=== PATIENT | male | born 1965 | race Caucasian/White ===

== ENCOUNTER → 2018-09-08 | Day surgery (SDC) | payer OTHER ==
--- NOTE | 2018-09-06 14:01 | Diagnostic Imaging Report ---
EXAM: XR CHEST 2 VIEWS DATE: 09/06/2018 1:31 PM INDICATION: COPD COMPARISON: None FINDINGS: Lines and Tubes: None Heart and Mediastinum: No acute cardiomediastinal findings. Lungs and Pleura: No significant pleural effusion, pneumothorax, or focal consolidation. Bones and Soft Tissues: No acute findings. IMPRESSION: 1. No acute cardiopulmonary findings. Signed by: Dr. Benson Baldwin MD on 09/06/2018 1:58 PM
[2018-09-06 14:15] LABS: BASOPHILS # (AUTO) 0.1 (0.0-0.1); BASOPHILS % 1.1 % (0.0-1.0); EOSINOPHILS # (AUTO) 0.1 (0.0-0.4); EOSINOPHILS % 2.3 % (0.0-6.0); HEMATOCRIT 42.2 % (38.2-49.6); HEMOGLOBIN 14.3 g/dL (14.0-18.0); LYMPHOCYTES % 37.9 % (18.0-39.1); MEAN CORPUSCULAR HEMOGLOBIN 28.5 pg (28-32); MEAN CORPUSCULAR HGB CONC 33.9 g/dL (31-35); MEAN CORPUSCULAR VOLUME 84.1 fL (81-99); MONOCYTES # (AUTO) 0.5 (0.2-0.8); MONOCYTES % 9.9 % (4.4-11.3); NEUTROPHILS # (AUTO) 2.5 (2.1-6.9); NEUTROPHILS % 48.6 % (38.7-80.0); PLATELET COUNT 175 x10e3/uL (140-360); RED BLOOD COUNT 5.02 x10e6/uL (4.3-5.7); RED CELL DISTRIBUTION WIDTH 13.1 % (11.7-14.4)
[~2018-09-08] MED LIST: CEFTRIAXONE SOD 1 GM VIAL ONE; DEXAMETHASONE SOD PHOS INJ 4 MG/ML VIAL ONE; FENTANYL CITRATE/PF 100MCG/2 ML INJ ONE; FLOMAX0.4 MG PO; IOPAMIDOL 610MG/1ML 300 MG/ML VIAL IV ONE; LIDOCAINE HCL 2% LOCAL INJ 5 ML SDV VIAL INJ ONE; LOSARTAN-HCTZ1 EAC1 PO; MIDAZOLAM HCL 2 MG/2 ML VIAL ONE; ONDANSETRON HCL INJ 2 MG/ML VIAL ONE; PAROXETINE HCL20 MG PO; PROPOFOL IV EMULSION 10 MG/ML 20 ML VIAL ONE; SEVOFLURANE INHAL SOLN 250 ML PEN BTL ONE; SPIRIVA18 MCG INH
--- OUTSIDE RECORDS SUMMARY | 2018-09-08 11:54 | XMS REPORT ---
Author Author [facility] Address Unknown Phone Unavailable Care Team Providers Care Manager Marketing Communications Name Role Phone ABHINAV NAM Unavailable Unavailable Problems This patient has no known problems. Allergies, Adverse Reactions, Alerts This patient has no known allergies or adverse reactions. Medications This patient has no known medications. Results Test Description Test Time Test Comments Text Results Atomic Results Result Comments CHEST 2 VIEWS 2018-09-06 13:58:00 [place] [id number] Patient Name: BRUCE CEDEÑO MR #: [id number] : 1965 Age/Sex: 53/M Req #: [id number] [facility] Physician: Ordered by: ABHINAV NAM MD Report #: [id number] Location: OR Room/Bed: Procedure: [id number] DX/CHEST 2 VIEWS Exam Date: Exam Time: REPORT STATUS: Signed EXAM: XR CHEST 2 VIEWS DATE: 09/06/2018 1:31 PM INDICATION: COPD COMPARISON: None FINDINGS: Lines and Tubes: None Heart and Mediastinum: No acute cardiomediastinal findings. Lungs and Pleura: No significant pleural effusion, pneumothorax, or focal consolidation. Bones and Soft Tissues: No acute findings. IMPRESSION: 1. No acute cardiopulmonary findings. Signed by: Dr. Benson Alvares MD on 09/06/2018 1:58 PM Dictated By: BENSON ALVARES MD 135 Transcribed By: ROBERTO on 09/06/18 135 COPY TO: ABHINAV NAM MD
--- OUTSIDE RECORDS SUMMARY | 2018-09-08 11:54 | XMS REPORT | Clinical Summary ---
Author Author [facility] Address Unknown Phone Unavailable Care Team Providers Care Electronic Intelligence Officer Name Role Phone Asked, No Pcp PCP Unavailable Allergies No Known Allergies Medications End Date Status Medication Sig Dispensed Refills Start Date Active tamsulosin (FLOMAX) 0.4 Take 1 30 capsule 201 mg capsule,extended capsule (0.4 8 release 24hr mg total) by mouth daily. Active Problems No known active problems Encounters Care Team Description Date Type Specialty Will Galicia MD 04/08/2018 Telephone Urology Yoko Cota MA 04/05/2018 Telephone Urology Will Galicia MD BPH with obstruction/lower urinary tract symptoms (Primary Dx); Hematospermia 04/02/2018 Office Visit Urology after 09/07/2017 Social History Date Tobacco Use Types Packs/Day Years Used Never Smoker Smokeless Tobacco: Never Used Alcohol Use Drinks/Week oz/Week Comments Yes Sex Assigned at Date Recorded Not on file Industry Job Start Date Occupation Not on file Not on file Not on file Travel End Travel History Travel Start No recent travel history available. Last Filed Vital Signs Time Taken Vital Sign Reading - Blood Pressure - - Pulse - - Temperature - - Respiratory Rate - - Oxygen Saturation - - Inhaled Oxygen - Concentration 04/02/2018 8:39 AM CDT Weight 93.4 kg (206 lb) 04/02/2018 8:39 AM CDT Height 170.2 cm (5' 7") 04/02/2018 8:39 AM CDT Body Mass Index 32.26 Plan of Treatment Health Maintenance Due Date Last Done Comments MMR VACCINES (1 of - 02/14/1964 Standard series) VARICELLA VACCINES (1 of 02/14/1976 2 - 2-dose adolescent series) COLON CANCER SCREENING 2013 SHINGRIX VACCINE (1 of 2) 2013 INFLUENZA VACCINE 05/26/2018 HEPATITIS B VACCINES Aged Out No longer eligible based on patient's age to complete this topic IPV VACCINES Aged Out No longer eligible based on patient's age to complete this topic MENINGOCOCCAL VACCINE Aged Out No longer eligible based on patient's age to complete this topic Procedures Comments Procedure Name Priority Date/Time Associated Diagnosis PROSTATE SPECIFIC ANTIGEN Routine 04/02/2018 BPH with 10:28 AM CDT obstruction/lower urinary tract symptoms after 09/07/2017 Results * Prostate specific antigen (04/02/2018 10:28 AM CDT) PSA 1.5 0.0 - 4.0 ng/mL [facility] Comment: Ann ECLIA methodology. According to the [place] [employer], Serum PSA should decrease and remain at undetectable levels after radical prostatectomy. The AUA defines biochemical recurrence as an initial PSA value 0.2 ng/mL or greater followed by a subsequent confirmatory PSA value 0.2 ng/mL or greater. Values obtained with different assay methods or kits cannot be used interchangeably. Results cannot be interpreted as absolute evidence of the presence or absence of malignant disease. Specimen Blood Narrative Performed At Performed at: [facility] [place] [facility] [address], [id number] Hospitality Specialist: Bob Bryson MD, Phone:[phone] Performing Organization Address City/State/Zipcode Phone Number [facility] after 09/07/2017 Insurance Payer Benefit Subscriber ID Type Phone Address Plan / Group [facility] UMR xxxxxxxx PPO [facility] Advance Directives Patient has advance care planning documents on file. For more information, olman e contact: Richar Lund [address] [place] [address]
[2018-09-08 14:10] VITALS: BP 131/94
--- NOTE | 2018-09-08 14:41 | Operative Report ---
DATE OF PROCEDURE: September 08, 2018 PREOPERATIVE DIAGNOSIS: Hematuria. POSTOPERATIVE DIAGNOSES 1. Hematuria. 2. BPH. 3. Urethral stricture disease. PROCEDURES 1. Cystourethroscopy with calibration and dilation of the urethral stricture (entirely separate procedure for the diagnosis of urethral stricture disease, multifocal). 2. Cystourethroscopy with left ureteral catheterization and left retrograde pyelogram (separate procedure for diagnosis of hematuria). 3. Cystourethroscopy with right ureteral catheterization and right retrograde pyelogram (separate procedure for diagnosis of hematuria). 4. Supervision of fluoroscopy. 5. Interpretation of retrograde pyelography. ANESTHESIA: General. ESTIMATED BLOOD LOSS: Minimal. COMPLICATIONS: None. INDICATIONS: Mr. Shahid is a 53-year-old male with a history of hematuria. He and I had a long discussion regarding the alternatives, risks and benefits, including doing nothing, cystourethroscopy, IVP, retrograde pyelogram or ultrasound. Due to the nephrotoxic risk of dye, he elected to proceed with retrograde pyelograms. He voiced an understanding of the options, the alternatives, and the risks and benefits and elected to proceed. PROCEDURE IN DETAIL: After informed consent was obtained, the patient was taken to the operating suite. He was placed supine on the operating table. He underwent general anesthesia by the anesthesia service. He was placed in the dorsal lithotomy position. He was sterilely prepped and draped for cystoscopy. An attempt was made to insert a 22.5-Stateless cystoscope per urethra. It was calibrated to 16 Stateless and dilated to 21 Stateless, and the cystoscope was inserted. There were multifocal, wide-caliber urethral strictures in the fossa, the membranous urethra and the bulbar urethra. There was trilobar prostatic hypertrophy. Panendoscopy of the bladder revealed moderate degree of trabeculation. There were no tumors and no stones. With a moderate degree of difficulty, bilateral retrograde pyelograms were performed revealing delicate ureters and delicate pelvicaliceal systems. No evidence of filling defects and no evidence of hydronephrosis. Impression was normal bilateral retrograde pyelograms. The bladder was drained. The patient was awakened from anesthesia and transported to the recovery room in excellent condition. SUPERVISION OF FLUOROSCOPY AND INTERPRETATION OF RETROGRADE URETEROPYELOGRAPHY: I was present throughout the entire procedure, and I supervised the use of fluoroscopy. There was no radiologist present at any time during the procedure. Attention was turned toward the left and right ureteral orifices, which were catheterized with an 8-Stateless, cone-tip catheter in a retrograde fashion. Contrast was injected revealing delicate ureters and delicate pelvicaliceal systems. No evidence of filling defects and no evidence of hydronephrosis. IMPRESSION: No retrograde pyelograms. Job#: [id number] cc:OMID GALLEGO MD
== END | disposition home or self-care (01) ==
LOC: OR 11:51
PROVIDERS: ATTEND Urology
DX: N35.919 Unspecified urethral stricture, male, unspecified site (principal); R31.9 Hematuria, unspecified; N40.0 Benign prostatic hyperplasia without lower urinary tract symptoms; N43.40 Spermatocele of epididymis, unspecified; Z01.810 Encounter for preprocedural cardiovascular examination; Z01.812 Encounter for preprocedural laboratory examination; Z01.811 Encounter for preprocedural respiratory examination
CPT/HCPCS: 36415; 52281; 71046; 74420; 85025; 93005; C1758; J0696; J1100; J2001; J2250; J2405; J2704; Q9967

== ENCOUNTER → 2019-08-12 | Day surgery (SDC) | payer OTHER ==
[2019-08-11 10:40] LABS: BASOPHILS # (AUTO) 0.1 (0.0-0.1); EOSINOPHILS # (AUTO) 0.1 (0.0-0.4); EOSINOPHILS % 1.8 % (0.0-6.0); HEMATOCRIT 42.8 % (38.2-49.6); HEMOGLOBIN 14.5 g/dL (14.0-18.0); LYMPHOCYTES # (AUTO) 1.4 (1.0-3.2); LYMPHOCYTES % 28.7 % (18.0-39.1); MEAN CORPUSCULAR HEMOGLOBIN 28.8 pg (28-32); MEAN CORPUSCULAR HGB CONC 33.9 g/dL (31-35); MEAN CORPUSCULAR VOLUME 85.1 fL (81-99); MONOCYTES # (AUTO) 0.4 (0.2-0.8); MONOCYTES % 8.6 % (4.4-11.3); NEUTROPHILS % 59.7 % (38.7-80.0); PLATELET COUNT 178 x10e3/uL (140-360); RED BLOOD COUNT 5.03 x10e6/uL (4.3-5.7); RED CELL DISTRIBUTION WIDTH 12.8 % (11.7-14.4)
[2019-08-11 10:58] LABS: ALANINE AMINOTRANSFERASE 31 IU/L (0-55); ALBUMIN/GLOBULIN RATIO 1.3 (0.8-2.0); ALKALINE PHOSPHATASE 68 IU/L (40-150); ANION GAP 11.2 mmol/L (8-16); BLOOD UREA NITROGEN 18 mg/dL (7-26); BUN/CREATININE RATIO 18 (6-25); CALCIUM 10.2 mg/dL (8.4-10.2); CARBON DIOXIDE 30 mmol/L (22-29); CHLORIDE 104 mmol/L (98-107); EST GLOMERULAR FILTRATION RATE > 60 ML/MIN (60-); GLUCOSE 119 mg/dL (74-118); POTASSIUM 4.2 mmol/L (3.5-5.1); SODIUM 141 mmol/L (136-145)
[~2019-08-12] VITALS: Ht 172.7 cm; Wt 91.6 kg
[~2019-08-12] MED LIST changes: +ABREVA INH; +ALPRAZOLAM 0.5 MG TAB ONE; +ASPIR 8181 MG PO; -CEFTRIAXONE SOD 1 GM VIAL ONE; -DEXAMETHASONE SOD PHOS INJ 4 MG/ML VIAL ONE; +DIPHENHYDRAMINE HCL 25 MG CAP ONE; +HEPARIN SOD (PORCINE) 1000 UNIT/ML 30ML ONE; +HEPARIN SOD/SOD CHLORIDE 2,000 ML ONE; +IOPAMIDOL 370 MG/ML 200 ML INFUS..BTL INJ ONE; -IOPAMIDOL 610MG/1ML 300 MG/ML VIAL IV ONE; +LIDOCAINE HCL 2% LOCAL 20 ML VIAL ONE; -LIDOCAINE HCL 2% LOCAL INJ 5 ML SDV VIAL INJ ONE; -ONDANSETRON HCL INJ 2 MG/ML VIAL ONE; -PROPOFOL IV EMULSION 10 MG/ML 20 ML VIAL ONE; -SEVOFLURANE INHAL SOLN 250 ML PEN BTL ONE; +SODIUM CHLORIDE 0.9% 1000ML 1,000 ML ONE; +VERAPAMIL HCL 2.5 MG/ML 2 ML VIAL ONE
[2019-08-12 12:57] VITALS: BP 154/92
[2019-08-12 14:30] VITALS: BP 136/91
[2019-08-12 14:45] VITALS: BP 132/97
[2019-08-12 15:00] VITALS: BP 136/94
--- NOTE | 2019-08-12 15:05 | NUR ---
Dr. Frausto at bedside to discuss procedural findings with patient and patient's family at bedside.
[2019-08-12 15:15] VITALS: BP 137/94
--- NOTE | 2019-08-12 15:25 | NUR ---
IV 20g Left antecubital removed by Shay Herrera RN. Dressing applied per unit protocol. Dressing to left antecubital is clean,dry, and intact at this time. Dressing to right wrist is clean,dry, and intact at this time. Patient denies no loss of sensation or numbness to right hand or digits of right hand. 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 Patient discharged with belongings. No distress noted at this time.
--- NOTE | 2019-08-12 20:36 | Operative Report ---
DATE OF PROCEDURE: 08/12/2019 SURGEON: Galen Frausto MD INDICATIONS: Coronary artery disease, angina, and abnormal stress test. PROCEDURES PERFORMED: 1. Left heart catheterization, selective coronary angiography. 2. Deployment of right wrist TR band. COMPLICATIONS: None. BLOOD LOSS: Minimal. RECOMMENDATIONS: Addition of beta-adelso and ranolazine for angina DESCRIPTION OF PROCEDURE: Access obtained in the right radial artery. A 5-[place] sheath was placed. Coronary angiography demonstrated mild coronary artery disease, 20% to 30% luminal stenosis, mid myocardial bridge with endothelial dysfunction was noted. No critical stenosis or occlusions. LV end-diastolic pressure of 10. No gradient across the aortic valve on pullback. Right wrist TR band applied. The patient discharged home the same day. Galen Frausto MD KSB/MODL /[id number]
== END | disposition home or self-care (01) ==
LOC: CATH LAB 11:01
PROVIDERS: ATTEND Internal Medicine Interventional Cardiology
DX: I25.118 Atherosclerotic heart disease of native coronary artery with other forms of angina pectoris (principal); R94.39 Abnormal result of other cardiovascular function study; Z01.812 Encounter for preprocedural laboratory examination; Z79.82 Long term (current) use of aspirin
CPT/HCPCS: 36415; 80053; 85025; 93458; C1769 ×2; C1887; J1644; J2001; J2250; J3010; J7030; Q9967; 99152

== ENCOUNTER → 2023-03-16 | Day surgery (SDC) | payer OTHER ==
[~2023-03-16] MED LIST changes: -ALPRAZOLAM 0.5 MG TAB ONE; +AMLODIPINE PO; +CEFTRIAXONE 1 GM VIAL ONE; +DEXAMETHASONE SOD PHOS INJ 4 MG/ML SDV ONE; -DIPHENHYDRAMINE HCL 25 MG CAP ONE; -HEPARIN SOD (PORCINE) 1000 UNIT/ML 30ML ONE; -HEPARIN SOD/SOD CHLORIDE 2,000 ML ONE; -IOPAMIDOL 370 MG/ML 200 ML INFUS..BTL INJ ONE; +IOPAMIDOL 610MG/1ML 300 MG/ML VIAL IV ONE; +KETOROLAC TROMETHAMINE 30 MG/ML VIAL ONE; +LACTATED RINGER'S 1,000 ML ONE; -LIDOCAINE HCL 2% LOCAL 20 ML VIAL ONE; +LIDOCAINE HCL 2% LOCAL INJ 5 ML SDV VIAL INJ ONE; +LOSARTAN PO; +ONDANSETRON HCL INJ 2MG/ML 2ML 2 MG/ML VIAL ONE; +POVIDONE IODINE 0.05% 0.05 % ML PO ONE; +PROPOFOL IV EMULSION 10 MG/ML 20 ML VIAL ONE; +SEVOFLURANE INHAL SOLN 250 ML PEN BTL ONE; -SODIUM CHLORIDE 0.9% 1000ML 1,000 ML ONE; -VERAPAMIL HCL 2.5 MG/ML 2 ML VIAL ONE
[2023-03-16 08:05] VITALS: BP 135/90; PULSE 63; RESP 15; O2SAT 97
== END | disposition home or self-care (01) ==
LOC: OR 05:28
PROVIDERS: ATTEND Urology
DX: N35.919 Unspecified urethral stricture, male, unspecified site (principal); N40.1 Benign prostatic hyperplasia with lower urinary tract symptoms; N32.89 Other specified disorders of bladder; N39.0 Urinary tract infection, site not specified; N43.40 Spermatocele of epididymis, unspecified; N50.0 Atrophy of testis; I86.1 Scrotal varices; N43.3 Hydrocele, unspecified; R97.20 Elevated prostate specific antigen [PSA]; G47.33 Obstructive sleep apnea (adult) (pediatric); I10 Essential (primary) hypertension; E78.5 Hyperlipidemia, unspecified; J44.9 Chronic obstructive pulmonary disease, unspecified; K21.9 Gastro-esophageal reflux disease without esophagitis; Z01.810 Encounter for preprocedural cardiovascular examination; Z79.899 Other long term (current) drug therapy; Z68.31 Body mass index [BMI] 31.0-31.9, adult
CPT/HCPCS: 52281; 74420; 93005; J0696; J1100; J1885; J2001; J2405; J2704; J7121; Q9967; J2250